=== PATIENT | female | born 1995 | race Caucasian/White ===

== ENCOUNTER 2019-11-15 10:31 | Emergency (ER) | payer BC ==
[2019-11-15 10:51] VITALS: BP 130/87; PULSE 98; RESP 18; TEMP 98.1
--- NOTE | 2019-11-15 11:43 | ED ---
General Adult HPI - General Chief complaint: ENT Stated complaint: ENT Time Seen by Provider: 11/15/19 11:10 Source: patient, family, RN notes reviewed Mode of arrival: ambulatory Limitations: no limitations - History of Present Illness Initial comments: 23-year-old female presents to the emergency department for a chief complaint of cough congestion sore throat and ear pain. States this is been ongoing for the past 4 days. States she does not seem to be getting better. Patient has felt febrile on and off with chills however has not checked her temperature. She is afebrile here in the emergency department. Patient admits to mild cough but states this is dry in nature. Denies history of asthma. Denies shortness of breath. Denies neck pain or stiffness. Admits to mild headache. Patient has no other complaints at this time including shortness of breath, chest pain, abdominal pain, nausea or vomiting, headache, or visual changes. - Related Data Previous Rx's Medication Instructions Recorded Amoxicillin/Potassium Clav 1 tab PO Q12HR #20 tab 11/15/19 [Augmentin 875-125 Tablet] Fluticasone Propionate [Flonase 1 spray EA NOSTRIL DAILY 7 Days #1 11/15/19 Allergy Relief] bottle guaiFENesin [Mucinex] 600 mg PO Q12HR PRN #20 tablet.er 11/15/19 Allergies Allergy/AdvReac Type Severity Reaction Status Date / Time cefprozil [From Cefzil] Allergy Unknown Verified 11/15/19 10:52 Childhood Tetracyclines Allergy Rash/Hives Verified 11/15/19 10:52 Review of Systems ROS Statement: Those systems with pertinent positive or pertinent negative responses have been documented in the HPI. ROS Other: All systems not noted in ROS Statement are negative. Past Medical History Past Medical History: No Reported History History of Any Multi-Drug Resistant Organisms: None Reported Past Surgical History: No Surgical Hx Reported Past Psychological History: No Psychological Hx Reported Smoking Status: Never smoker Past Alcohol Use History: None Reported, Occasional Past Drug Use History: None Reported General Exam Limitations: no limitations General appearance: alert, in no apparent distress Head exam: Present: atraumatic, normocephalic, normal inspection Eye exam: Present: normal appearance, PERRL, EOMI. Absent: scleral icterus, conjunctival injection, periorbital swelling ENT exam: Present: normal exam, mucous membranes moist, TM's normal bilaterally (Nonerythematous, nonbulging), normal external ear exam. Absent: normal oropharynx (Postnasal drip is noted. Uvula midline, no tonsillar exudates bilaterally. No evidence for [employer]) Neck exam: Present: normal inspection. Absent: tenderness, meningismus, lymphadenopathy Respiratory exam: Present: normal lung sounds bilaterally. Absent: respiratory distress, wheezes, rales, rhonchi, stridor Cardiovascular Exam: Present: regular rate, normal rhythm, normal heart sounds. Absent: systolic murmur, diastolic murmur, rubs, gallop, clicks GI/Abdominal exam: Present: soft, normal bowel sounds. Absent: distended, tenderness, guarding, rebound, rigid Neurological exam: Present: alert Course Vital Signs 11/15/19 10:48 Temperature 98.1 F Pulse Rate 98 Respiratory 18 Rate Blood Pressure 130/87 O2 Sat by Pulse 100 Oximetry Medical Decision Making - Medical Decision Making Vitals are stable, patient afebrile. Chest x-ray shows no acute cardiopulmonary process. Strep is negative. Patient is noted to have significant congestion with postnasal drip. Therefore patient was given nasal spray as well as Mucinex. I discussed that if symptoms are not improving after 7 days she can start Augmentin. Otherwise she'll follow-up with primary care and return here if she has any worsening symptoms or fevers or facial swelling. - Lab Data Lab Results 11/15/19 Range/Units 11:36 Group A Strep Rapid Negative (Negative) Disposition Clinical Impression: Sinusitis Disposition: HOME SELF-CARE Condition: Good Instructions (If sedation given, give patient instructions): Sinusitis (ED) Additional Instructions: Please take prescriptions as directed. If symptoms are not starting to improve after 7 days start antibiotic. Follow-up with primary care in 1-2 days. Return to the emergency department if you have any worsening symptoms. Prescriptions are at [facility] on . Prescriptions: Amoxicillin/Potassium Clav [Augmentin 875-125 Tablet] 1 tab PO Q12HR #20 tab Fluticasone Propionate [Flonase Allergy Relief] 1 spray EA NOSTRIL DAILY 7 Days #1 bottle guaiFENesin [Mucinex] 600 mg PO Q12HR PRN #20 tablet.er PRN Reason: Congestion Is patient prescribed a controlled substance at d/c from ED?: No Referrals: Olena Valle MD [REFERRING] - 1-2 days Time of Disposition: 12:07
--- NOTE | 2019-11-15 11:58 | XR ---
EXAMINATION TYPE: XR chest 2V DATE OF EXAM: 11/15/2019 COMPARISON: NONE HISTORY: Cough TECHNIQUE: Frontal and lateral views of the chest are obtained. FINDINGS: There is no focal air space opacity. No evidence for pneumothorax. No pleural effusion. The cardiac silhouette size is within normal limits. The osseous structures are grossly intact. IMPRESSION: 1. No acute cardiopulmonary process.
== END 2019-11-15 12:05 | disposition home or self-care (01) ==
LOC: EC 10:31
DX: J32.9 Chronic sinusitis, unspecified (principal); Z88.1 Allergy status to other antibiotic agents
CPT/HCPCS: 71046; 87081; 87430; 99283